=== PATIENT | male | born 1990 | race Asian ===

== ENCOUNTER 2017-08-12 12:03 | Emergency (ER) | payer OTHER ==
[~2017-08-12] VITALS: Ht 162.6 cm; Wt 83.2 kg
[2017-08-12 12:37] LABS: BASOPHILS % (AUTO) 0.2 % (0-1); EOSINOPHILS # (AUTO) 0.1 X10'3 (0-0.9); EOSINOPHILS % (AUTO) 1.4 % (0-6); HEMATOCRIT 46.9 % (42.0-52.0); HEMOGLOBIN 16.3 g/dl (14.0-17.9); LYMPHOCYTES # (AUTO) 2.1 X10'3 (1.1-4.8); LYMPHOCYTES % (AUTO) 28.6 % (21-51); MEAN CORPUSCULAR HGB CONC 34.8 % (33.0-36.5); MEAN CORPUSCULAR VOLUME 89.1 FL (78-98); MONOCYTES # (AUTO) 0.6 X10'3 (0-0.9); MONOCYTES % (AUTO) 7.9 % (2-12); NEUTROPHILS # (AUTO) 4.5 X10'3 (1.8-7.7); NEUTROPHILS % (AUTO) 61.9 % (42-75); PLATELET COUNT 198 X10'3 (140-440); RED BLOOD COUNT 5.26 X10'6 (4.70-6.10); RED CELL DISTRIBUTION WIDTH 12.7 % (11.5-14.5); WHITE BLOOD COUNT 7.3 X10'3 (4.5-11.0)
[2017-08-12 12:49] LABS: PARTIAL THROMBOPLASTIN TIME 27 SECONDS (22-32)
[2017-08-12 12:55] LABS: ALANINE AMINOTRANSFERASE 97 U/L (12-78); ALBUMIN 4.1 G/DL (3.4-5.0); ALBUMIN/GLOBULIN RATIO 1.1 (1.1-1.5); ALKALINE PHOSPHATASE 73 IU/L (46-116); ANION GAP 11 (8-16); ASPARTATE AMINO TRANSFERASE 31 U/L (10-37); BILIRUBIN,TOTAL 0.6 MG/DL (0.1-1.0); BLOOD UREA NITROGEN 19 MG/DL (7-18); BUN/CREATININE RATIO 15.8 (5.4-32.0); CALCIUM 9.1 MG/DL (8.5-10.1); CHLORIDE 107 MMOL/L (99-107); GLUCOSE 110 MG/DL (70-104); POTASSIUM 3.7 MMOL/L (3.5-5.1); SODIUM 143 MMOL/L (135-145); TOTAL PROTEIN 7.7 G/DL (6.4-8.2); eGFR 72 ML/MIN
[2017-08-12] MEDS ORDERED: NAPR-56 PO (12:55)
[2017-08-12] MEDS ORDERED: METO50TA16 PO (13:14)
[2017-08-12] MEDS ORDERED: metoprolol tartrate 50mg tablet PO ONE (13:15)
[2017-08-12 13:44] VITALS: BP 125/89
== END 2017-08-12 13:48 | disposition home or self-care (01) ==
LOC: ER 12:04
DX: R07.81 Pleurodynia (principal); R05 Cough; R74.0 Nonspecific elevation of levels of transaminase and lactic acid dehydrogenase [LDH]
CPT/HCPCS: 36415; 71045; 80053; 84484; 85025; 85610; 85730; 93005; 99285

== ENCOUNTER 2020-06-06 21:36 | Emergency (ER) | payer MEDICAID ==
[~2020-06-06] VITALS: Ht 160 cm; Wt 89.6 kg
[~2020-06-06 21:36] MED LIST: METO50TA16 PO
[2020-06-06 22:01] LABS: BASOPHILS % (AUTO) 0.4 % (0-1); EOSINOPHILS # (AUTO) 0.3 X10'3 (0-0.9); EOSINOPHILS % (AUTO) 2.7 % (0-6); HEMATOCRIT 45.2 % (42.0-52.0); HEMOGLOBIN 15.5 g/dl (14.0-17.9); LYMPHOCYTES # (AUTO) 3.3 X10'3 (1.1-4.8); LYMPHOCYTES % (AUTO) 30.4 % (21-51); MEAN CORPUSCULAR HEMOGLOBIN 31.1 PG (27.0-31.0); MEAN CORPUSCULAR HGB CONC 34.3 g/dL (33.0-36.5); MEAN CORPUSCULAR VOLUME 90.8 FL (78-98); MEAN PLATELET VOLUME 7.8 FL (7.4-10.4); MONOCYTES # (AUTO) 0.6 X10'3 (0-0.9); MONOCYTES % (AUTO) 5.9 % (2-12); NEUTROPHILS # (AUTO) 6.5 X10'3 (1.8-7.7); NEUTROPHILS % (AUTO) 60.6 % (42-75); PLATELET COUNT 236 X10'3 (140-440); RED BLOOD COUNT 4.98 X10'6 (4.70-6.10); RED CELL DISTRIBUTION WIDTH 12.7 % (11.5-14.5); WHITE BLOOD COUNT 10.8 X10'3 (4.5-11.0)
[2020-06-06 22:15] LABS: ALANINE AMINOTRANSFERASE 101 U/L (12-78); ALBUMIN/GLOBULIN RATIO 1.1 (1.1-1.5); ALKALINE PHOSPHATASE 85 IU/L (46-116); ANION GAP 8 (8-16); ASPARTATE AMINO TRANSFERASE 37 U/L (10-37); BILIRUBIN,TOTAL 0.4 MG/DL (0.1-1.0); BLOOD UREA NITROGEN 21 MG/DL (7-18); BUN/CREATININE RATIO 16.3 (5.4-32.0); CALCIUM 8.9 MG/DL (8.5-10.1); CHLORIDE 104 MMOL/L (99-107); CREATININE 1.29 MG/DL (0.60-1.10); GLUCOSE 103 MG/DL (70-104); SODIUM 139 MMOL/L (135-145); TOTAL CARBON DIOXIDE 27.5 MMOL/L (24-32); TOTAL PROTEIN 7.6 G/DL (6.4-8.2); eGFR 65 ML/MIN
[2020-06-06 23:23] VITALS: BP 145/118
== END 2020-06-07 02:22 | disposition home or self-care (01) ==
LOC: ER 21:36
DX: I10 Essential (primary) hypertension (principal); F14.90 Cocaine use, unspecified, uncomplicated; Z79.899 Other long term (current) drug therapy
CPT/HCPCS: 36415; 71045; 80053; 83880; 84484; 85025; 93005; 99285

== ENCOUNTER 2022-06-21 07:16 | Observation (INO) | payer MEDICAID ==
[~2022-06-21] VITALS: Ht 162.6 cm; Wt 93.6 kg
[2022-06-21] MEDS ORDERED: normal saline 1000ML IV soln IVB STA (08:03)
[2022-06-21] MEDS ORDERED: tranexamic acid 100mg/ml inj. IV ONE (08:05)
[2022-06-21] MEDS ORDERED: triamcinolone acetonide 40mg/ml inj IM ONE (08:05)
[2022-06-21] MEDS ORDERED: diphenhydrAMINE 50 mg/ml inj IV ONE (08:05)
[2022-06-21] MEDS ORDERED: famotidine/PF 10 mg/ml inj IV ONE (08:05)
[2022-06-21] MEDS ORDERED: methylPREDNISolone sod succ 125mg/2ml vial IV ONE (08:05)
[2022-06-21 10:33] LABS: BASOPHILS % (AUTO) 0.5 % (0-1); EOSINOPHILS # (AUTO) 0.1 X10'3 (0-0.9); EOSINOPHILS % (AUTO) 2.2 % (0-6); HEMATOCRIT 43.2 % (42.0-52.0); HEMOGLOBIN 14.7 g/dl (14.0-17.9); LYMPHOCYTES # (AUTO) 1.3 X10'3 (1.1-4.8); LYMPHOCYTES % (AUTO) 27.2 % (21-51); MEAN CORPUSCULAR HEMOGLOBIN 30.7 PG (27.0-31.0); MEAN CORPUSCULAR HGB CONC 34.1 g/dL (33.0-36.5); MEAN PLATELET VOLUME 8.3 FL (7.4-10.4); MONOCYTES # (AUTO) 0.6 X10'3 (0-0.9); MONOCYTES % (AUTO) 13.2 % (2-12); NEUTROPHILS # (AUTO) 2.7 X10'3 (1.8-7.7); NEUTROPHILS % (AUTO) 56.9 % (42-75); PLATELET COUNT 166 X10'3 (140-440); RED CELL DISTRIBUTION WIDTH 12.8 % (11.5-14.5); WHITE BLOOD COUNT 4.8 X10'3 (4.5-11.0)
[2022-06-21 10:43] LABS: ALANINE AMINOTRANSFERASE 106 U/L (12-78); ALBUMIN 3.4 G/DL (3.4-5.0); ALKALINE PHOSPHATASE 99 IU/L (46-116); ASPARTATE AMINO TRANSFERASE 63 U/L (10-37); BILIRUBIN,TOTAL 0.7 MG/DL (0.1-1.0); BLOOD UREA NITROGEN 10 MG/DL (7-18); BUN/CREATININE RATIO 11.2 (5.4-32.0); CALCIUM 8.5 MG/DL (8.5-10.1); CHLORIDE 103 MMOL/L (99-107); CREATININE 0.89 MG/DL (0.60-1.10); GLUCOSE 216 MG/DL (70-104); POTASSIUM 3.8 MMOL/L (3.5-5.1); TOTAL CARBON DIOXIDE 23.8 MMOL/L (24-32); TOTAL PROTEIN 6.9 G/DL (6.4-8.2); eGFR > 90 ML/MIN
--- NOTE | 2022-06-21 11:07 | NUR ---
FFP STARTED 97.7. 93 HR, 96%RA, 20RESP, 123/85BP
[2022-06-21 11:12] LABS: ANION GAP 14 (8-16); SODIUM 141 MMOL/L (135-145)
[2022-06-21] MEDS ORDERED: nicotine 14mg patch - 24hr TD SCH (11:25)
[2022-06-21] MEDS: normal saline 1000ml 1,000 ML IV SCH ×2 (11:30→13:57)
[2022-06-21] MEDS ORDERED: diphenhydrAMINE 50 mg/ml inj IV PRN (11:30)
[2022-06-21] MEDS ORDERED: magnesium Cl slow-release 64mg tablet PO PRN (11:30)
[2022-06-21] MEDS ORDERED: metoprolol tartrate 50mg tablet PO SCH (11:30)
[2022-06-21] MEDS ORDERED: famotidine 20mg tablet PO SCH (11:30)
[2022-06-21] MEDS ORDERED: cetirizine 10mg tablet PO SCH (11:30)
[2022-06-21] MEDS ORDERED: potassium Cl 40MEQ/1/2NS 520ml 520 ML IV PRN (11:30)
[2022-06-21] MEDS ORDERED: acetaminophen 325mg tablet PO PRN ×2 (11:30)
[2022-06-21] MEDS ORDERED: magnesium 4gm in 100ml NS 100 ML IV PRN (11:30)
[2022-06-21] MEDS ORDERED: ondansetron/PF 4mg/2ml inj IV PRN (11:30)
[2022-06-21] MEDS ORDERED: potassium Cl 20 mEq SR tablet PO PRN ×2 (11:30)
[2022-06-21] MEDS ORDERED: diphenhydrAMINE 25mg capsule PO PRN (11:30)
[2022-06-21] MEDS ORDERED: LORazepam 1 MG tablet PO PRN (11:35)
[2022-06-21] MEDS ORDERED: LORazepam 2 mg/ml vial IV PRN (11:35)
[2022-06-21] MEDS ORDERED: METO50TA17 PO (14:40)
[2022-06-21 17:40] LABS: URINE AMPHETAMINE SCREEN NEGATIVE (Neg); URINE BARBITUATE SCREEN NEGATIVE (Neg); URINE BENZODIAZEPINES SCREEN NEGATIVE (Neg); URINE CANNABINOID SCREEN NEGATIVE (Neg); URINE COCAINE SCREEN NEGATIVE (Neg); URINE METHADONE SCREEN NEGATIVE (Neg); URINE OPIATE SCREEN NEGATIVE (Neg); URINE PHENCYCLIDINE SCREEN NEGATIVE (Neg)
--- NOTE | 2022-06-21 18:10 | NUR ---
EVERT HOLT. PT LEFT AMA. DISCUSSED RISKS OF INJURY, ILLNESS AND EVEN WHEN LEAVING AMA. PT EDUCATED TO PLEASE RETURN IF NEEDED.
[2022-06-21 18:18] VITALS: BP 152/70
[2022-06-21] MEDS ORDERED: K and/or MAG REPLACEMENT MC SCH (20:00)
[2022-06-21] MEDS ORDERED: methylPREDNISolone sod succ 125mg/2ml vial IV SCH (20:00)
[2022-06-21] MEDS ORDERED: heparin, porcine 5000 units/ml vial SQ SCH (20:00)
[2022-06-21] MEDS ORDERED: temazepam 15mg capsule PO PRN (21:00)
[2022-06-22] MEDS ORDERED: CefTRIAXone 2gm/D5W 50ml BAG 50 ML IV SCH (08:00)
[2022-06-26] MEDS ORDERED: folic acid 1mg tablet PO SCH (08:00)
[2022-06-26] MEDS ORDERED: thiamine 100mg tablet PO SCH (08:00)
== END 2022-06-21 18:10 | disposition left against medical advice (07) ==
LOC: ER 07:17 → ED HOLD 11:33
PROVIDERS: ADMIT Internal Medicine; ATTEND Internal Medicine
DX: U07.1 COVID-19 (principal); T78.3XXA Angioneurotic edema, initial encounter; I10 Essential (primary) hypertension; F17.200 Nicotine dependence, unspecified, uncomplicated; Z79.899 Other long term (current) drug therapy
CPT/HCPCS: 36415; 36430; 80053; 80305; 83605; 85025; 86885; 86900; 86901; 87040; 96361; 96372; 96374; 96375; 99285; G0378; J1200; J2930; J3301; J3490; J7030; J7050; P9059